=== PATIENT | female | born 1935 | race Caucasian/White ===

== ENCOUNTER → 2017-02-12 | Outpatient (CLI) | payer MEDICARE, OTHER ==
--- NOTE | 2017-02-12 19:40 | PCVCIMAG ---
APPROVED REPORT Study performed: 02/12/2017 09:59:04 EXAM: Comprehensive 2D, Doppler, and color-flow Echocardiogram Patient Location: Out-Patient Other Information Study Quality: Fair Indications Aortic Valve Disease Palpitations Hypertension/HDD diastolic dysfunction 2D Dimensions LVEF(%): 67.37 (>50%) IVSd: 9.64 (7-11mm)LVOT Diam: 20.02 (18-24mm) LVDd: 42.32 mm PWd: 9.10 (7-11mm) LVDs: 26.63 (25-40mm) Left Atrium: 27.25 (27-40mm) Aortic Root: 27.80 mm LV Single Plane 4CH: 64.80 % LV Single Plane 2CH: 68.22 %Acuña's LVEF: 66.51 % Biplane EF: 66.6 % Volumes Left Atrial Volume (Systole) Single Plane 4CH: 31.85 mLSingle Plane 2CH: 43.64 mL LA ESV Index: 22.00 mL/m2 Aortic Valve AoV Peak Sumit.: 2.05 m/s AO Peak Gr.: 17.60 mmHgLVOT Max P.59 mmHg AO Mean Gr.: 8.92 mmHg AO V2 Mean: 1.42 m/sLVOT Max V: 0.95 m/s AO V2 VTI: 45.11 cm BALA Vmax: 1.45 cm2 Mitral Valve E/A Ratio: 0.7 MV Decel. Time: 219.95 ms MV E Max Sumit.: 0.67 m/s MV A Sumit.: 0.93 m/s MV PHT: 63.78 ms IVRT: 107.27 ms Pulmonary Valve PV Peak Sumit.: 0.99 m/sPV Peak Gr.: 3.92 mmHg Pulmonary Vein P Vein S: 0.70 m/sP Vein A: 0.33 m/s P Vein D: 0.37 m/sP Vein A Dur.: 76.1 msec P Vein S/D Ratio: 1.89 Tricuspid Valve TR Peak Sumit.: 1.93 m/s TR Peak Gr.: 14.96 mmHg TV Vmax: 0.68 m/s Left Ventricle The left ventricle is normal size. There is normal LV segmental wall motion. There is normal left ventricular wall thickness. Left ventricular systolic function is normal. The left ventricular ejection fraction is within the normal range. LVEF is 65-70%. Grade I - abnormal relaxation pattern. Right Ventricle The right ventricle is normal size. The right ventricular systolic function is normal. Atria The left atrium size is normal. The right atrium size is normal. Aortic Valve The aortic valve is normal in structure. Mild-moderate aortic valve sclerosis.Mild erduction in leaflet excursion. Trivial aortic regurgitation is present. Mild to moderate aortic stenosis. The valve area is 1.5 cm2. Peak aortic valve gradient is 17 mmHg. Mean gradient is 9 mmhg Mitral Valve The mitral valve is normal in structure. There is no mitral valve regurgitation noted. No evidence of mitral valve stenosis. Tricuspid Valve The tricuspid valve is normal in structure. There is no tricuspid valve regurgitation noted. Pulmonic Valve The pulmonary valve is normal in structure. There is no pulmonic valvular regurgitation. Great Vessels The aortic root is normal in size. IVC is normal in size and collapses with >50% inspiration Pericardium There is no pericardial effusion. <Conclusion> The left ventricle is normal size. There is normal left ventricular wall thickness. LVEF is 65-70%. Grade I - abnormal relaxation pattern. The right ventricle is normal size. The left atrium size is normal. The aortic valve is normal in structure. Mild-moderate aortic valve sclerosis.Mild erduction in leaflet excursion. Mild to moderate aortic stenosis. The valve area is 1.5 cm2. Peak aortic valve gradient is 17 mmHg. Mean gradient is 9 mmhg The mitral valve is normal in structure. There is no pericardial effusion.
== END | disposition home or self-care (01) ==
LOC: PCVCIMAG 09:47
PROVIDERS: ATTEND Internal Medicine Cardiovascular Disease
DX: I35.0 Nonrheumatic aortic (valve) stenosis (principal); I35.1 Nonrheumatic aortic (valve) insufficiency; I10 Essential (primary) hypertension; E78.00 Pure hypercholesterolemia, unspecified; I51.9 Heart disease, unspecified; Z88.1 Allergy status to other antibiotic agents; Z79.899 Other long term (current) drug therapy; Z90.710 Acquired absence of both cervix and uterus
CPT/HCPCS: 80061; 93005; 93306; G0463

== ENCOUNTER → 2018-02-17 | Outpatient (CLI) | payer MEDICARE, OTHER | END | disposition home or self-care (01) | LOC: PCVCIMAG 08:34 | DX: I35.0 Nonrheumatic aortic (valve) stenosis (principal); I10 Essential (primary) hypertension; E78.00 Pure hypercholesterolemia, unspecified; Z79.899 Other long term (current) drug therapy; Z88.8 Allergy status to other drugs, medicaments and biological substances | CPT/HCPCS: 80061; 93005; 93306; G0463 ==

== ENCOUNTER → 2019-01-01 | Outpatient (CLI) | payer MEDICARE, OTHER | END | disposition home or self-care (01) | LOC: PCVCCLINIC 10:50 | PROVIDERS: ATTEND Internal Medicine Cardiovascular Disease | DX: I35.0 Nonrheumatic aortic (valve) stenosis (principal); E78.00 Pure hypercholesterolemia, unspecified; I10 Essential (primary) hypertension; Z88.0 Allergy status to penicillin; Z88.8 Allergy status to other drugs, medicaments and biological substances; Z79.899 Other long term (current) drug therapy | CPT/HCPCS: 36415; 80061; 93005; G0463 ==

== ENCOUNTER → 2019-08-03 | Outpatient (CLI) | payer MEDICARE, OTHER ==
--- NOTE | 2019-08-04 14:10 | PCVCIMAG ---
APPROVED REPORT Study performed: 08/03/2019 09:54:01 EXAM: Comprehensive 2D, Doppler, and color-flow Echocardiogram Patient Location: Echo lab Status: routine BSA: 1.97 HR: 71 bpmBP: 160/90 mmHg Rhythm: NSR Other Information Study Quality: Adequate Risk Factors: Cardiac Risk Factors: HTN, Hyperlipidemia Indications Aortic Stenosis 2D Dimensions IVSd: 11.35 (7-11mm)LVOT Diam: 19.93 (18-24mm) LVDd: 35.23 mm PWd: 10.64 (7-11mm)Ascending Ao: 30.56 (22-36mm) LVDs: 27.21 (25-40mm) Left Atrium: 29.65 (27-40mm) Aortic Root: 26.45 mm LV Single Plane 4CH: 57.93 % LV Single Plane 2CH: 76.72 % Biplane EF: 68.3 % Volumes Left Atrial Volume (Systole) Single Plane 4CH: 40.73 mLSingle Plane 2CH: 26.02 mL LA ESV Index: 19.00 mL/m2 Aortic Valve AoV Peak Sumit.: 3.15 m/s AO Peak Gr.: 39.76 mmHgLVOT Max P.61 mmHg AO Mean Gr.: 21.01 mmHgLVOT Mean P.22 mmHg AO V2 Mean: 2.19 m/sLVOT Max V: 1.18 m/s AO V2 VTI: 71.15 cmLVOT Mean V: 0.84 m/s BALA (VTI): 1.29 [id number] V1 VTI: 29.48 cm BALA Vmax: 1.17 cm2 SV (LVOT): 91.92 mL Mitral Valve E/A Ratio: 0.9 MV Decel. Time: 258.30 ms MV E Max Sumit.: 0.95 m/s MV A Sumit.: 1.03 m/s TDI E/Lateral E': 11.88E/Medial E': 11.88 Medial E' Sumit.: 0.08 m/s Lateral E' Sumit.: 0.08 m/s Pulmonary Valve PV Peak Gr.: 2.96 mmHg Pulmonary Vein P Vein S: 0.72 m/sP Vein A: 0.60 m/s P Vein D: 0.47 m/sP Vein A Dur.: 117.6 msec P Vein S/D Ratio: 1.53 Tricuspid Valve TR Peak Sumit.: 2.96 m/s TR Peak Gr.: 35.13 mmHg Left Ventricle The left ventricle is normal size. There is normal LV segmental wall motion. There is normal left ventricular wall thickness. Left ventricular systolic function is normal. The left ventricular ejection fraction is within the normal range. LVEF is 55-60%. Grade I - abnormal relaxation pattern. Right Ventricle The right ventricle is normal size. The right ventricular systolic function is normal. Atria The left atrium size is normal. The right atrium size is normal. Aortic Valve Aortic valve leaflets are moderately thickened. No aortic regurgitation is present. Peak gradient is 40mmHg. Mean gradient is 21mmHg. Calculated aortic valve area is 1.2cm2. Mitral Valve Mild mitral annular calcification. Trace mitral regurgitation. No evidence of mitral valve stenosis. Tricuspid Valve The tricuspid valve is normal in structure. Trace tricuspid regurgitation. Pulmonic Valve The pulmonary valve is normal in structure. There is no pulmonic valvular regurgitation. Great Vessels The aortic root is normal in size. IVC is normal in size and collapses >50% with inspiration. Pericardium There is no pericardial effusion. <Conclusion> The left ventricle is normal size. LVEF is 55-60%. Grade I - abnormal relaxation pattern. The right ventricle is normal size. The left atrium size is normal. Aortic valve leaflets are moderately thickened. Peak gradient is 40mmHg. Mean gradient is 21mmHg. Calculated aortic valve area is 1.2cm2. Mild mitral annular calcification. Trace mitral regurgitation. Trace tricuspid regurgitation. The aortic root is normal in size. There is no pericardial effusion.
== END | disposition home or self-care (01) ==
LOC: PCVCIMAG 10:22
PROVIDERS: ATTEND Internal Medicine Cardiovascular Disease
DX: I10 Essential (primary) hypertension (principal); E78.00 Pure hypercholesterolemia, unspecified; I35.0 Nonrheumatic aortic (valve) stenosis; Z90.710 Acquired absence of both cervix and uterus; Z82.49 Family history of ischemic heart disease and other diseases of the circulatory system; Z79.899 Other long term (current) drug therapy
CPT/HCPCS: 36415; 80061; 93306; G0463